=== PATIENT | female | born 2000 | race Asian ===

== ENCOUNTER 2020-11-03 16:25 | Observation (INO) | payer OTHER ==
[~2020-11-03] VITALS: Ht 157.5 cm; Wt 51.3 kg
[2020-11-03 18:19] LABS: BASOPHILS ABSOLUTE AUTO 0.02 K/mm3 (0.00-0.23); BASOPHILS PERCENT AUTO 0 % (0-2); EOSINOPHILS ABSOLUTE AUTO 0.02 K/mm3 (0.00-0.68); EOSINOPHILS PERCENT AUTO 0 % (0-6); Hematocrit 42.3 % (33.0-51.0); Hemoglobin 14.1 g/dL (11.5-16.0); IMMATURE GRAN ABSOLUTE AUTO 0.02 K/mm3 (0.00-0.10); IMMATURE GRAN PERCENT AUTO 0 % (0-1); LYMPHOCYTES ABSOLUTE AUTO 0.72 K/mm3 (0.84-5.20); LYMPHOCYTES PERCENT AUTO 9 % (21-46); MONOCYTES ABSOLUTE AUTO 0.44 K/mm3 (0.16-1.47); MONOCYTES PERCENT AUTO 6 % (4-13); Mean Corpuscular HGB 31.3 pg (26.0-34.0); Mean Corpuscular HGB Conc 33.3 g/dL (31.5-36.5); Mean Corpuscular Volume 94 fL (80-100); Mean Platelet Volume 9.7 fL (9.1-12.4); NEUTROPHILS ABSOLUTE AUTO 6.41 K/mm3 (1.96-9.15); NEUTROPHILS PERCENT AUTO 84 % (41-73); Platelet Count 207 K/mm3 (150-400); RDW Coefficient Variation 11.9 % (11.7-14.2); RDW Standard Deviation 41.4 fL (35.1-46.3); Red Blood Cell Count 4.51 M/mm3 (3.80-5.20); White Blood Cell Count 7.63 K/mm3 (4.00-11.30)
[2020-11-03 18:37] LABS: Alanine Aminotransfer (ALT/SGP 9 U/L (12-78); Albumin/Globulin Ratio 0.9 (0.8-1.8); Alk Phos 88 U/L (50-136); Anion Gap 7 mmol/L (6-16); Aspartate Aminotrans (AST/SGOT 10 U/L (12-37); Bilirubin, Total 0.5 mg/dL (0.1-1.0); Blood Urea Nitrogen 8 mg/dL (8-24); Bun/Creatinine Ratio 11.8 (12.0-20.0); CO2, Blood 24 mmol/L (21-32); Calcium, Blood 9.3 mg/dL (8.5-10.1); Chloride, Blood 108 mmol/L (98-108); Creatinine, Blood 0.68 mg/dL (0.40-1.00); Globulin, Blood 4.5 g/dL (2.2-4.0); Glomerular Filtration Rate >60 (60-); Glucose, Blood 85 mg/dL (70-99); Potassium, Blood 3.7 mmol/L (3.5-5.5); Sodium, Blood 139 mmol/L (136-145); Total Protein, Blood 8.5 g/dL (6.4-8.2)
[2020-11-03 19:01] LABS: Beta HCG, Quantitative, Serum 1014 mIU/mL (0-3)
[2020-11-03 20:06] LABS: Source, Urine Clean Catch
[2020-11-03 20:18] LABS: Appearance, Urine Clear (Clear); Bilirubin, Urine Neg (Neg); Blood, Urine 5+ (Neg); Color, Urine Yellow (P-Yellow); Glucose Qualitative, Urine Neg (Neg); Ketones, Urine Neg (Neg); Leukocyte Esterase, Urine Neg (Neg); Nitrite, Urine Neg (Neg); Protein, Urine Neg (Neg); Specific Gravity, Urine 1.025 (1.003-1.022); Urobilinogen, Urine NORM (Normal)
[2020-11-03 21:11] LABS: Amorphous Light (0-Heavy); Bacteria Few /hpf; Mucus Light (0-Heavy); Red Blood Cells, Urine 0-2 /hpf (0-2); Squamous Epithelial Cells Few /hpf (Few); White Blood Cells, Urine 0-2 /hpf (0-5)
[2020-11-03 23:34] LABS: BASOPHILS ABSOLUTE AUTO 0.02 K/mm3 (0.00-0.23); BASOPHILS PERCENT AUTO 0 % (0-2); EOSINOPHILS ABSOLUTE AUTO 0.04 K/mm3 (0.00-0.68); EOSINOPHILS PERCENT AUTO 1 % (0-6); Hematocrit 37.5 % (33.0-51.0); Hemoglobin 12.9 g/dL (11.5-16.0); IMMATURE GRAN ABSOLUTE AUTO 0.04 K/mm3 (0.00-0.10); IMMATURE GRAN PERCENT AUTO 1 % (0-1); LYMPHOCYTES PERCENT AUTO 21 % (21-46); MONOCYTES ABSOLUTE AUTO 0.52 K/mm3 (0.16-1.47); MONOCYTES PERCENT AUTO 9 % (4-13); Mean Corpuscular HGB 31.6 pg (26.0-34.0); Mean Corpuscular HGB Conc 34.4 g/dL (31.5-36.5); Mean Corpuscular Volume 92 fL (80-100); Mean Platelet Volume 9.8 fL (9.1-12.4); NEUTROPHILS ABSOLUTE AUTO 4.23 K/mm3 (1.96-9.15); NEUTROPHILS PERCENT AUTO 69 % (41-73); Platelet Count 190 K/mm3 (150-400); RDW Coefficient Variation 11.9 % (11.7-14.2); RDW Standard Deviation 40.6 fL (35.1-46.3); Red Blood Cell Count 4.08 M/mm3 (3.80-5.20); White Blood Cell Count 6.15 K/mm3 (4.00-11.30)
--- NOTE | 2020-11-04 00:39 | NUR ---
PT ADMITTED TO FLOOR FROM ER. PT HAVING SM AMT OF VAGINAL BLEEDING SINCE HER MISCARRIAGE LAST TUESDAY. THE PT WILL CALL RN WHEN CHANGING PADS. PT HAVING ABD CRAMPING AND LOWER BACK PAIN. ALSO STS IS HAVING A HEADACHE, BUT IS TOLERABLE AT THIS TIME.
--- NOTE | 2020-11-04 00:44 | NUR ---
PT ARRIVED TO FLOOR FROM ER. PT A/ERT, REPORTS OCC DIZZINESS WHEN UP. ABD TENDER TO PALP, PT ALSO REPORTS TENDERNESS TO FLANK/LOWER BACK. PT REP ABD FEELS "FULL, LIKE SOMETHING IS IN THERE BUT CAN'T COME OUT" PT REP ONGOING VAGINAL BLEEDING SINCE MISCARRIAGE MONDAY 10/30, REPORTS BLEEDING IS MORE SPOTTING NOW. PT REPORTS PAIN/BURNING W/VOIDING URINE. PT REP GARCIA CASIE AT THIS TIME, DENIES N/V AT THIS TIME. CYTOTEC GIVEN PER ORDERS. PT ORIENTED TO ROOM/CALL LIGHT, WILL TX PER ORDERS AND NOTIFY MD FOR CHANGES OR CONCERNS.
--- NOTE | 2020-11-04 01:22 | NUR ---
TEMP: PT C/O ABD PAIN, TYLENOL GIVNE FOR ABD PAIN. TEMP NOTED 100.8. REPEAT TEMP APPX 10 MIN LATER WAS 101.6. ROOM TEMP REDUCED. CALL PLACED TO DR LECHUGA, NEW ORDERS FOR ABX AND LABS RECEIVED.
[2020-11-04 02:08] LABS: BASOPHILS ABSOLUTE AUTO 0.03 K/mm3 (0.00-0.23); BASOPHILS PERCENT AUTO 1 % (0-2); EOSINOPHILS ABSOLUTE AUTO 0.06 K/mm3 (0.00-0.68); EOSINOPHILS PERCENT AUTO 1 % (0-6); Hemoglobin 13.2 g/dL (11.5-16.0); IMMATURE GRAN ABSOLUTE AUTO 0.05 K/mm3 (0.00-0.10); IMMATURE GRAN PERCENT AUTO 1 % (0-1); LYMPHOCYTES ABSOLUTE AUTO 1.28 K/mm3 (0.84-5.20); LYMPHOCYTES PERCENT AUTO 22 % (21-46); MONOCYTES ABSOLUTE AUTO 0.57 K/mm3 (0.16-1.47); MONOCYTES PERCENT AUTO 10 % (4-13); Mean Corpuscular HGB 31.3 pg (26.0-34.0); Mean Corpuscular HGB Conc 33.8 g/dL (31.5-36.5); Mean Corpuscular Volume 92 fL (80-100); Mean Platelet Volume 9.6 fL (9.1-12.4); NEUTROPHILS ABSOLUTE AUTO 3.87 K/mm3 (1.96-9.15); NEUTROPHILS PERCENT AUTO 66 % (41-73); Platelet Count 186 K/mm3 (150-400); RDW Coefficient Variation 11.9 % (11.7-14.2); RDW Standard Deviation 40.3 fL (35.1-46.3); Red Blood Cell Count 4.22 M/mm3 (3.80-5.20); White Blood Cell Count 5.86 K/mm3 (4.00-11.30)
[2020-11-04 02:26] LABS: Alanine Aminotransfer (ALT/SGP 9 U/L (12-78); Albumin, Blood 3.5 g/dL (3.4-5.0); Albumin/Globulin Ratio 0.9 (0.8-1.8); Alk Phos 66 U/L (50-136); Anion Gap 8 mmol/L (6-16); Aspartate Aminotrans (AST/SGOT 8 U/L (12-37); Bilirubin, Total 0.6 mg/dL (0.1-1.0); Blood Urea Nitrogen 6 mg/dL (8-24); Bun/Creatinine Ratio 9.2 (12.0-20.0); CO2, Blood 24 mmol/L (21-32); Calcium, Blood 8.7 mg/dL (8.5-10.1); Chloride, Blood 105 mmol/L (98-108); Creatinine, Blood 0.65 mg/dL (0.40-1.00); Globulin, Blood 3.9 g/dL (2.2-4.0); Glomerular Filtration Rate >60 (60-); Glucose, Blood 106 mg/dL (70-99); Potassium, Blood 3.4 mmol/L (3.5-5.5); Sodium, Blood 137 mmol/L (136-145); Total Protein, Blood 7.4 g/dL (6.4-8.2)
--- NOTE | 2020-11-04 04:19 | NUR ---
SHIFT SUMMARY: PT HAVING HEADACHE, CHILLS, DIZZINESS POST MISCARRIAGE ON 10/30/20. SM AMT OF VAGINAL BLEEDING. AMBULATES INDEPENDENTLY TO RESTROOM. RECEIVING ANTIBIOTICS. PT HAD FEVER AND MEDICATED PER EMAR. NOTIFIED.
--- NOTE | 2020-11-04 05:47 | NUR ---
T-MAX 101.6, FEVER RESOLVED W/TYLENOL AND NON PHARM COOLING MEASURES. PT A/O, REP HEADACHE INCREASED W/FEVER, REP MILD DIZZINESS WHEN UP. PT REP INC IN ABD PAIN/CRAMPING AFTER CYTOTEC GIVEN, REP RELIEF AFTER TYLENOL. PT CONT TO REP ABD "FEELS FULL", IS VERY TENDER/GUARDED TO PALP, NO C/O N/V. PT REP VAGINAL SPOTTING, LATESHA PAD IN PLACE, PT EDUCATED TO NOTIFY STAFF TO ASSESS PAD WHEN SHE CHANGES IT. IV ABX CONT PER ORDERS.
[2020-11-04 07:50] LABS: BASOPHILS ABSOLUTE AUTO 0.02 K/mm3 (0.00-0.23); BASOPHILS PERCENT AUTO 0 % (0-2); EOSINOPHILS ABSOLUTE AUTO 0.18 K/mm3 (0.00-0.68); EOSINOPHILS PERCENT AUTO 4 % (0-6); Hemoglobin 12.8 g/dL (11.5-16.0); IMMATURE GRAN ABSOLUTE AUTO 0.03 K/mm3 (0.00-0.10); IMMATURE GRAN PERCENT AUTO 1 % (0-1); LYMPHOCYTES ABSOLUTE AUTO 1.56 K/mm3 (0.84-5.20); LYMPHOCYTES PERCENT AUTO 32 % (21-46); MONOCYTES ABSOLUTE AUTO 0.56 K/mm3 (0.16-1.47); MONOCYTES PERCENT AUTO 11 % (4-13); Mean Corpuscular HGB 31.8 pg (26.0-34.0); Mean Corpuscular HGB Conc 33.7 g/dL (31.5-36.5); Mean Corpuscular Volume 94 fL (80-100); Mean Platelet Volume 9.7 fL (9.1-12.4); NEUTROPHILS ABSOLUTE AUTO 2.58 K/mm3 (1.96-9.15); NEUTROPHILS PERCENT AUTO 52 % (41-73); Platelet Count 180 K/mm3 (150-400); RDW Standard Deviation 41.6 fL (35.1-46.3); Red Blood Cell Count 4.03 M/mm3 (3.80-5.20); White Blood Cell Count 4.93 K/mm3 (4.00-11.30)
[2020-11-04 08:15] LABS: Alanine Aminotransfer (ALT/SGP 10 U/L (12-78); Albumin, Blood 3.1 g/dL (3.4-5.0); Albumin/Globulin Ratio 0.8 (0.8-1.8); Alk Phos 56 U/L (50-136); Anion Gap 6 mmol/L (6-16); Aspartate Aminotrans (AST/SGOT 14 U/L (12-37); Beta HCG, Quantitative, Serum 711 mIU/mL (0-3); Bilirubin, Total 0.5 mg/dL (0.1-1.0); Blood Urea Nitrogen 7 mg/dL (8-24); CO2, Blood 25 mmol/L (21-32); Calcium, Blood 8.3 mg/dL (8.5-10.1); Chloride, Blood 108 mmol/L (98-108); Globulin, Blood 3.8 g/dL (2.2-4.0); Glomerular Filtration Rate >60 (60-); Glucose, Blood 84 mg/dL (70-99); Potassium, Blood 3.5 mmol/L (3.5-5.5); Sodium, Blood 139 mmol/L (136-145); Total Protein, Blood 6.9 g/dL (6.4-8.2)
--- NOTE | 2020-11-04 17:51 | NUR ---
SHIFT SUMMARY: A&OX4. COOPERATIVE W/CARE. ABLE TO AMBULATE INDEPENDENTLY IN ROOM. PT REPORTS MILD ABDOMINAL CRAMPING. SLIGHT SPOTTING NOTED ON PAD. PT REPORTS PAIN UNDER CONTROL AND DID NOT REQUEST ANY PAIN MEDICATIONS. ABX ADMINISTERED PER EMAR. OFFERED PT SNACKS T/O SHIFT. CALL LIGHT IN REACH.
--- NOTE | 2020-11-05 06:17 | NUR ---
PT VSS. PT REP ABD PAIN MINIMAL, ONLY MILD CRAMPING, DENIED NEED FOR PAIN MEDS. PT CHANGED LATESHA PAD X3 TIMES, BLEEDING APPEARS TO BE LESSENING AND IS MORE PINK VS RED. PT CASIE REG PO, NO N/V, NO BM THIS SHIFT. IVF ABX CONT PER ORDERS. PT EAGER TO D/C HOME.
[2020-11-05] MEDS ORDERED: IBUP800 PO (13:58)
--- NOTE | 2020-11-05 17:49 | NUR ---
DISCHARGE VSS, REMAINS FREE OF FEVER. VERY MINIMAL SPOTTING AND CRAMPING. PT DENIES PAIN. EATING, DRINKING, & VOIDING WELL. PT IS VERY PLEASANT AND HAPPY TO DISCHARGE. SCRIPTS AND DISCHARGE INSTRUCTIONS SENT W/ PT. AWAITING RIDE.
--- NOTE | 2020-11-05 18:10 | NUR ---
PT AMBULATED OUT, DECLINED W/C
== END 2020-11-05 17:59 | disposition home or self-care (01) ==
LOC: ER 16:25 → SURS 16:26
PROVIDERS: Emergency Medicine; Physician Assistant; ADMIT Obstetrics & Gynecology
DX: R50.9 Fever, unspecified (principal); R00.0 Tachycardia, unspecified; R10.819 Abdominal tenderness, unspecified site; N93.9 Abnormal uterine and vaginal bleeding, unspecified; R51.9 Headache, unspecified; N85.4 Malposition of uterus; Z87.59 Personal history of other complications of pregnancy, childbirth and the puerperium
CPT/HCPCS: 36415; 76856; 80053; 81001; 83605; 84702; 85025; 86850; 86900; 86901; 87040; 87086; 96365; 96366; 96375; 96376; 99285-25; A9270; G0378; J0295; J7050

== ENCOUNTER 2022-06-03 20:28 | Emergency (ER) | payer OTHER ==
[~2022-06-03] VITALS: Ht 157.5 cm; Wt 52.2 kg
[~2022-06-03 20:28] MED LIST: IBUP800 PO
== END 2022-06-03 23:00 | disposition home or self-care (01) ==
LOC: ER 20:28
DX: R04.0 Epistaxis (principal); J06.9 Acute upper respiratory infection, unspecified
CPT/HCPCS: A9270

== ENCOUNTER → 2022-08-14 | Outpatient (CLI) | payer OTHER ==
[2022-08-15 13:45] LABS: Candida species (DNA Probe) Negative (NEGATIVE); G. vaginalis (DNA Probe) Negative (NEGATIVE); T. vaginalis (DNA Probe) Negative (NEGATIVE)
[2022-08-17 00:09] LABS: CHLAMYDIA TRACHOMATIS, NAA Negative (Negative)
== END | disposition home or self-care (01) ==
LOC: LAB SHORT 17:30
PROVIDERS: Physician Assistant
DX: R10.2 Pelvic and perineal pain (principal)
CPT/HCPCS: 87480; 87491; 87510; 87591; 87660